=== PATIENT | female | born 1960 | race Caucasian/White ===

== ENCOUNTER 2019-12-31 13:09 | Outpatient (CLI) | payer OTHER ==
--- NOTE | 2019-12-31 13:20 | RAD ---
XR Foot Lt 3 View STANDARD HISTORY: left foot pain FINDINGS: There is a faint linear lucency at the base of the fifth metatarsal suspicious for a nondisplaced fra cture. No dislocation is identified. A plantar calcaneal spur is present.
== END 2019-12-31 13:10 | disposition home or self-care (01) ==
LOC: RAD-FRANK 13:09
PROVIDERS: ATTEND Nurse Practitioner Family
DX: M79.672 Pain in left foot (principal)

== ENCOUNTER 2022-03-29 13:52 | Outpatient (CLI) | payer BC | END 2022-03-29 13:53 | disposition home or self-care (01) | LOC: BICMAMMO 13:52 | PROVIDERS: ATTEND Nurse Practitioner Family | DX: Z12.31 Encounter for screening mammogram for malignant neoplasm of breast (principal) | CPT/HCPCS: 77063; 77067 ==

== ENCOUNTER 2023-08-30 09:31 | Outpatient (CLI) | payer BC | END 2023-08-30 09:32 | disposition home or self-care (01) | LOC: BICMRI 09:31 | PROVIDERS: ATTEND Orthopaedic Surgery Hand Surgery | DX: M50.10 Cervical disc disorder with radiculopathy, unspecified cervical region (principal) | CPT/HCPCS: 72141 ==

== ENCOUNTER 2023-11-14 08:11 | Outpatient (CLI) | payer BC ==
[2023-11-14 09:02] LABS: #Basophils 0.03 10x3/uL (0.0-0.2); #Eosinphils 0.09 10x3/uL (0.0-0.5); #Monocytes 0.56 10x3/uL (0.0-1.1); %Basophils 0.4 % (0.0-2.0); %Eosinophils 1.3 % (0.0-6.0); %Monocytes 8.1 % (0.0-10.0); %Neutrophils 62.1 % (40.0-75.0); Hematocrit 42.9 % (34.9-44.5); Mean Corpuscular Hemoglobin 31.9 pg (27.0-33.0); Mean Corpuscular Volume 91.3 fl (81.6-98.3); Mean Platelet Volume 9.7 fl (7.4-10.4); Platelet Count 280 10x3/uL (150-450); RBC Distribution Width 13.2 % (11.5-14.5); White Blood Cell (WBC) Count 6.9 10x3/uL (3.5-10.5)
== END 2023-11-14 08:12 | disposition home or self-care (01) ==
LOC: LABBT 08:11
PROVIDERS: ATTEND Orthopaedic Surgery Hand Surgery
DX: Z01.818 Encounter for other preprocedural examination (principal); G56.03 Carpal tunnel syndrome, bilateral upper limbs
CPT/HCPCS: 85025; 93005; 93010

== ENCOUNTER 2023-11-17 06:37 | Day surgery (SDC) | payer BC ==
[2023-11-14 08:36] VITALS: BMI 24.1
[2023-11-17] MEDS ORDERED: Lidocaine 1% PF 5 ML VIAL ONE (08:44)
[2023-11-17] MEDS ORDERED: fentaNYL PF 100 MCG/2 ML SYRINGE ONE (08:44)
[2023-11-17] MEDS ORDERED: Ondansetron PF 4 MG/2 ML Vial ONE (08:44)
[2023-11-17] MEDS ORDERED: Dexamethasone 4 mg/ml Vial ONE (08:44)
[2023-11-17] MEDS ORDERED: PROPOFOL 20 ML ONE (08:44)
[2023-11-17] MEDS ORDERED: Bupivacaine PF 0.5% 30 ML VIAL ONE (09:34)
[2023-11-17] MEDS ORDERED: CEFAZOLIN 2 GM VIAL ONE (09:34)
[2023-11-17] MEDS ORDERED: Sodium Chloride 0.9% 100 ML ONE (09:34)
[2023-11-17] MEDS ORDERED: Bacitracin Zinc Ointment 30 gm TUBE ONE (10:08)
[2023-11-17] MEDS ORDERED: Ketorolac Tromethamine 30 MG (1 mL) VIAL ONE (11:53)
== END 2023-11-17 13:18 | disposition home or self-care (01) ==
LOC: SDC 06:37
PROVIDERS: ATTEND Orthopaedic Surgery Hand Surgery
PROC: 01N50ZZ Release Median Nerve, Open Approach (ICD-10-PCS; principal; 2023-11-17)
DX: G56.03 Carpal tunnel syndrome, bilateral upper limbs (principal); M48.02 Spinal stenosis, cervical region; M15.1 Heberden's nodes (with arthropathy); Z90.89 Acquired absence of other organs
CPT/HCPCS: A6223; J0665; J1100; J1885; J2405; J2704; J3490

== ENCOUNTER 2023-12-18 07:49 | Outpatient (CLI) | payer BC ==
[2023-12-18 09:52] LABS: #Basophils 0.03 10x3/uL (0.0-0.2); #Eosinphils 0.07 10x3/uL (0.0-0.5); #Monocytes 0.47 10x3/uL (0.0-1.1); #Neutrophils 3.43 10x3/uL (1.5-8.4); %Basophils 0.5 % (0.0-2.0); %Eosinophils 1.2 % (0.0-6.0); %Lymphocytes 31.5 % (18.0-47.0); %Neutrophils 58.5 % (40.0-75.0); Hematocrit 41.6 % (34.9-44.5); Hemoglobin 14.7 g/dL (12.0-15.5); Mean Corpuscular HGB CONC 35.3 g/dL (32.0-36.0); Mean Corpuscular Hemoglobin 32.6 pg (27.0-33.0); Mean Corpuscular Volume 92.2 fL (81.6-98.3); Mean Platelet Volume 10.4 fL (7.4-10.4); Platelet Count 280 10x3/uL (150-450); RBC Distribution Width 12.8 % (11.5-14.5); Red Blood Cell (RBC) Count 4.51 10x6/uL (3.90-5.03); White Blood Cell (WBC) Count 5.9 10x3/uL (3.5-10.5)
== END 2023-12-18 07:50 | disposition home or self-care (01) ==
LOC: LABBT 07:49
PROVIDERS: ATTEND Orthopaedic Surgery Hand Surgery
DX: Z01.818 Encounter for other preprocedural examination (principal); G56.03 Carpal tunnel syndrome, bilateral upper limbs
CPT/HCPCS: 85025; 93005; 93010

== ENCOUNTER 2023-12-22 10:00 | Day surgery (SDC) | payer BC ==
[2023-12-18 08:12] VITALS: BMI 24.1
[2023-12-22] MEDS ORDERED: Sodium Chloride 0.9% 100 ML ONE (10:23)
[2023-12-22] MEDS ORDERED: CEFAZOLIN 2 GM VIAL ONE (10:23)
[2023-12-22] MEDS ORDERED: Lidocaine 2% PF 5 ML VIAL ONE (10:58)
[2023-12-22] MEDS ORDERED: PROPOFOL 20 ML ONE (10:58)
[2023-12-22] MEDS ORDERED: Bacitracin Zinc Ointment 30 gm TUBE ONE (11:33)
[2023-12-22] MEDS ORDERED: Bupivacaine PF 0.5% 30 ML VIAL ONE (11:33)
[2023-12-22] MEDS ORDERED: fentaNYL 50 mcg/mL 1 mL Vial ONE (11:52)
[2023-12-22] MEDS ORDERED: Ondansetron PF 4 MG/2 ML Vial ONE (12:06)
[2023-12-22] MEDS ORDERED: Dexamethasone 4 mg/ml Vial ONE (12:06)
[2023-12-22] MEDS ORDERED: Lidocaine 1% MPF 2 ML VIAL ONE (12:17)
[2023-12-22] MEDS ORDERED: Ketorolac Tromethamine 30 MG (1 mL) VIAL ONE (13:32)
== END 2023-12-22 14:17 | disposition home or self-care (01) ==
LOC: SDC 10:00
PROVIDERS: ATTEND Orthopaedic Surgery Hand Surgery
PROC: 01N50ZZ Release Median Nerve, Open Approach (ICD-10-PCS; principal; 2023-12-22)
DX: G56.03 Carpal tunnel syndrome, bilateral upper limbs (principal); M48.02 Spinal stenosis, cervical region; M19.042 Primary osteoarthritis, left hand; M19.041 Primary osteoarthritis, right hand
CPT/HCPCS: A6223; J0665; J1100; J1885; J2001; J2405; J2704; J3010; J3490